=== PATIENT | male | born 1990 | race American Indian/Alaskan Native ===

== ENCOUNTER 2018-05-25 17:36 | Emergency (ER) | payer OTHER ==
--- NOTE | 2018-05-25 17:44 | Emergency Department Report ---
Blank Doc - Documentation Documentation: This is a 27-year-old male that presents with right foot pain. Patient is also c/o of abscess. This initial assessment/diagnostic orders/clinical plan/treatment(s) is/are subject to change based on patient's health status, clinical progression and re- assessment by fellow clinical providers in the ED. Further treatment and workup at subsequent clinical providers discretion. Patient/guardians urged not to elope from the ED as their condition may be serious if not clinically assessed and managed. Initial orders include: 1- Patient sent to [facility] for further evaluation and treatment 2- xray
[2018-05-25 17:45] VITALS: BP 136/81
--- NOTE | 2018-05-25 18:27 | XRay Report ---
PROCEDURE: XR FOOT 3+V RT TECHNIQUE: Right foot 3 views HISTORY: right foot pain COMPARISONS: FINDINGS: No fracture identified. No dislocation seen. Joint spaces are within normal limits. No erosive bony c hanges are identified. IMPRESSION: . This document is electronically signed by Stuart Ballesteros MD., May 25 2018 06:25:06 PM ET
--- NOTE | 2018-05-25 22:11 | Emergency Department Report ---
Abscess Boil HPI - HPI Chief Complaint: Skin/Abscess/Foreign Body Stated Complaint: RT FOOT INJURY/THIGH PAIN ISSUES Time Seen by Provider: 05/25/18 17:43 Duration: 3 Days Location: Lower Extremity (left) Severity: Moderate History: Yes Pain, Yes Purulent Drainage, No Fever, No Numbness, No Foreign Body, No Previous History, No Insect Bite HPI: This is a 27-year-old [place] male represents with abscess to left posterior thigh for 2 days. Patient states purulent drainage which started yesterday. He also reports sharp pain with sleeping. She also complains of right foot pain from a fall while at work 1-1/2 weeks ago. Patient reports in creased pain with weightbearing that is nonradiating. He denies redness, numbness or tingling, swelling, paresthesias, weakness. Home Medications: Previous Rx's Medication Instructions Recorded Last Taken Type Sulfamethoxazole/Trimethoprim 1 each PO BID #14 tablet 05/25/18 Unknown Rx [Bactrim DS TAB] cephALEXin [Keflex] 500 mg PO Q6HR #28 capsule 05/25/18 Unknown Rx traMADol [Ultram 50 MG tab] 50 mg PO Q6HR PRN #12 tablet 05/25/18 Unknown Rx Allergies/Adverse Reactions: Allergies Allergy/AdvReac Type Severity Reaction Status Date / Time No Known Allergies Allergy Verified 05/25/18 17:39 ED Review of Systems ROS: Stated complaint: RT FOOT INJURY/THIGH PAIN ISSUES Other details as noted in HPI Constitutional: denies: chills, fever Respiratory: denies: cough, shortness of breath, wheezing Cardiovascular: denies: chest pain, palpitations Gastrointestinal: denies: abdominal pain, nausea, diarrhea Musculoskeletal: arthralgia (right foot). denies: back pain, joint swelling Skin: lesions (left posterior thigh). denies: rash Neurological: denies: headache, weakness, paresthesias Psychiatric: denies: anxiety, depression ED Past Medical Hx - Past Medical History Previous Medical History?: No - Surgical History Past Surgical History?: No - Social History Smoking Status: Never Smoker Substance Use Type: None - Medications Home Medications: Home Medications Medication Instructions Recorded Confirmed Last Taken Type Sulfamethoxazole/Trimethoprim 1 each PO BID #14 tablet 05/25/18 Unknown Rx [Bactrim DS TAB] cephALEXin [Keflex] 500 mg PO Q6HR #28 capsule 05/25/18 Unknown Rx traMADol [Ultram 50 MG tab] 50 mg PO Q6HR PRN #12 tablet 05/25/18 Unknown Rx ED Abscess Boil Physical Exam - Exam General: Vital signs noted. No distress. Alert and acting appropriately. Front/Back of Body, Lg (Color): 1 - 1 cm nonfluctuant nodule to the left posterior thigh, purulent drainage, surrounding cellulitis Size: 1 cm Exam: Yes Tenderness, Yes Surrounding Cellulites/Erythema, Yes Normal Neurologic Exam, Yes Normal Circulation, No Fluctuance, No Lymphangitis, No Crepitation, No Heart Murmur ED Course Vital Signs 05/25/18 17:43 Temperature 100.0 F H Pulse Rate 96 H Respiratory 16 Rate Blood Pressure 136/81 O2 Sat by Pulse 100 Oximetry Critical care attestation.: If time is entered above; I have spent that time in minutes in the direct care of this critically ill patient, excluding procedure time. ED Medical Decision Making - Radiology Data Radiology results: report reviewed PROCEDURE: XR FOOT 3+V RT TECHNIQUE: Right foot 3 views HISTORY: right foot pain COMPARISONS: FINDINGS: No fracture identified. No dislocation seen. Joint spaces are within normal limits. No erosive bony changes are identified. IMPRESSION: . - Medical Decision Making Patient is stable and examined by me. No acute signs of distress noted. Given tramadol while in the ER. I&D not indicated at this time. X-ray of right slit dictated by radiologist report reviewed by myself with no acute findings. Discussed plan to start bactrim DS, Keflex, and tramadol with patient. Educated patient and spouse on follow up plan for wound reassessed in 2-3 days. Patient agrees to ED plan of care. Discharged home and follow up with PCP in 2-3 days. ED Disposition Clinical Impression: Abscess or cellulitis of thigh, Right foot pain Muscle strain of foot Qualifiers: Encounter type: initial encounter Laterality: right Qualified Code(s): S96.911A - Strain of unspecified muscle and tendon at ankle and foot level, right foot, initial encounter Disposition: -01 TO HOME OR SELFCARE Is pt being admited?: No Does the pt Need Aspirin: No Condition: Stable Instructions: Arthralgia (ED), Abscess (ED), Muscle Strain (ED), RICE Therapy (ED) Additional Instructions: Complete full round of antibiotics as prescribed. Avoid drinking alcohol while taking antibiotics for 24 hours of completion. Follow up with PCP or ER in 2-3 days. Return to ER if foul smelling discharge, swelling, or severe pain to wound. Prescriptions: Sulfamethoxazole/Trimethoprim [Bactrim DS TAB] 1 each PO BID #14 tablet cephALEXin [Keflex] 500 mg PO Q6HR #28 capsule traMADol [Ultram 50 MG tab] 50 mg PO Q6HR PRN #12 tablet PRN Reason: Pain Referrals: [facility] [Outside] - 3-5 Days [facility] [Outside] - 3-5 Days [facility] [Outside] - 3-5 Days Forms: Work/School Release Form(ED) Time of Disposition: 22:16
[2018-05-25] MEDS ORDERED: ULTRAM PO ONE (22:13)
== END 2018-05-25 22:28 | disposition home or self-care (01) ==
LOC: ED 17:36
DX: S96.911A Strain of unspecified muscle and tendon at ankle and foot level, right foot, initial encounter (principal); L02.416 Cutaneous abscess of left lower limb; L03.115 Cellulitis of right lower limb; W18.30XA Fall on same level, unspecified, initial encounter; Y93.89 Activity, other specified; Y92.89 Other specified places as the place of occurrence of the external cause; Y99.8 Other external cause status